=== PATIENT | female | born 1985 | race Caucasian/White ===

== ENCOUNTER 2019-06-07 03:56 | Emergency (ER) | payer OTHER, SELFPAY ==
--- NOTE | ~2019-06-07 | CT_ITS ---
EXAMINATION: CTA chest PE protocol DATE: 06/07/2019 05:30 INDICATION: Right-sided chest pain with inspiration. TECHNIQUE: Computed tomography (CT) pulmonary angiogram of the chest was performed with 100 mL Omnipa que-350 intravenous contrast. Additional 3D reconstructions utilizing coronal maximum intensity proje ction (MIP) were performed. Automated exposure control and iterative reconstruction technique were em ployed. The dose-length product was 219.02 mGy-cm. COMPARISON: None FINDINGS: Excellent contrast opacification of the pulmonary arteries. There is mild streak artifact from dense contrast in the superior vena cava and right atrium. No significant motion artifact. No pulmonary emb olism. A couple small calcified nodules in the bilateral lower lobes consistent with old granulomatou s disease. Lungs are otherwise clear with no pneumonia, pulmonary edema or pleural effusion. Heart si ze is normal. No pericardial effusion. No pathologically enlarged thoracic lymphadenopathy. Bones are unremarkable. IMPRESSION: 1. No pulmonary embolism or other acute cardiopulmonary disease. Reviewed, dictated and finalized at location A. T TAXONOMIST
[2019-06-07 04:18] VITALS: BP 116/83; PULSE 96; RESP 19; TEMP 36.7; O2SAT 100
--- NOTE | 2019-06-07 04:22 | ECG_ITS ---
Measurements Intervals [place] Rate: 81 P: 50 HI: 135 QRS: 55 QRSD: 100 T: 8 QT: 375 QTc: 436 Interpretive Statements SINUS RHYTHM NORMAL ECG Electronically Signed On 06-07-2019 7:04:53 DIRECTOR PHYSICAL by Perry Norwood D.O.
[2019-06-07 04:38] LABS: Basophils Percent Auto 0.3 % (0.2-1.2); Eosinophils Absolute Auto 0.1 K/mm3 (0-0.3); Eosinophils Percent Auto 1.8 % (0-4.4); Hematocrit 32.9 % (37.0-47.0); Hemoglobin 10.9 g/dL (12.0-15.0); Immature Granulocyte Absolute 0.02 K/mm3 (0.00-0.031); Immature Granulocyte Percent A 0.3 % (0-0.5); Lymphocytes Absolute Auto 1.93 K/mm3 (0.9-3.2); Lymphocytes Percent Auto 27.2 % (18.3-44.2); Mean Corpuscular HGB Conc 33.1 g/dl (32-36); Mean Corpuscular Hemoglobin 29.1 pg (26-34); Mean Platelet Volume 9.8 fl (7.4-10.4); Monocytes Absolute Auto 0.5 K/mm3 (0.1-0.6); Monocytes Percent Auto 6.9 % (2.6-8.5); Neutrophils Absolute Auto 4.5 K/mm3 (1.3-6.7); Neutrophils Percent Auto 63.5 % (45.5-73.1); Platelet Count Result 265 k/mm3 (150-375); Red Blood Count 3.74 M/mm3 (4.2-5.4); Red Cell Distribution Width 11.8 % (11.5-14.5); White Blood Count 7.1 K/mm3 (4.5-10.0)
--- NOTE | 2019-06-07 04:38 | ED.CHESTPAIN ---
HPI - Chest Pain General Chief Complaint: Chest Pain Stated Complaint: rt lung pain Time Seen by Provider: 06/07/19 04:16 Source: patient Mode of arrival: ambulatory Limitations: no limitations History of Present Illness HPI narrative: Patient is a 34-year-old female who presents emergency department with complaint of right-sided chest pain. Patient reports onset of symptoms last night. Patient reports symptoms worsened this morning and woke her from sleep. Patient states the pain is worse with breathing. She denies any recent upper respiratory symptoms or shortness of breath. Patient underwent uterine myomectomy and ovarian cystectomy on 05/24/2019. Patient also recently was started on oral contraceptives earlier this month. complaint: chest pain Onset (ago): hour(s) Timing of current episode: constant Onset: during rest Pain location: right chest Severity: moderate Quality: aching Relieving factors: nothing Exacerbating factors: inspiration and movement Context: recent surgery Treatment prior to arrival: none Risk Factors Pulmonary embolism risk factors: recent surgery and oral contracepetive use Review of Systems Review of Systems: All systems reviewed & are unremarkable except as noted in HPI and below ENT: Denies nasal congestion, Denies nasal discharge and Denies sore throat Cardiovascular: Cardiovascular: Reports chest pain Respiratory: Respiratory: Denies cough and Denies dyspnea PMFSH Past Medical History Medical History (Updated 06/07/19 @ 06:10 by Berenice Montemayor MD) Ovarian cyst Surgical History Surgical History (Updated 06/07/19 @ 04:46 by Berenice Montemayor MD) History of myomectomy History of ovarian cystectomy Social History Social History (Updated 06/07/19 @ 04:46 by Berenice Montemayor MD) Smoking status: Never smoker Exam Const: General: cooperative, no acute distress and alert Nutritional Appearance: well nourished Orientation/consciousness: patient oriented x3 Limitations: no limitations HENMT: Mouth: Yes lip normal and Yes moist mucous membranes Resp: Effort & Inspection: normal respiratory effort Auscultation: clear to auscultation bilaterally Cardio: Rate: regular rate Rhythm: regular rhythm GI: GI Palp: Yes Soft to palpation and No Tenderness to palpation present (GI) Auscultation: normal bowel sounds Skin: General skin exam: normal color Neuro: General: patient oriented x3 Cognition (Neuro): normal cognition Speech: normal speech Extrem: General: normal to inspection, full ROM, no clubbing, cyanosis or edema, no pedal edema and no calf tenderness Psych: Mental Status: mental status grossly normal Affect: normal affect Attitude: cooperative Course Course Emergency Course: No acute abnormalities noted on testing. No significant change in symptoms after Toradol. Patient without findings of pulmonary embolism on CT scan. No other cardiopulmonary pathology noted on evaluation. Patient is well in appearance and appropriate for discharge home to follow-up with her primary care physician for further evaluation if needed. Symptoms consistent with pleurisy. Vital Signs Vital signs: Vital Signs Temperature 98.1 F 06/07/19 04:18 Pulse Rate 96 06/07/19 04:18 Respiratory Rate 19 06/07/19 04:18 Blood Pressure 116/83 06/07/19 04:18 Pulse Oximetry 100 06/07/19 04:18 Temperature 98.1 F 06/07/19 04:18 Pulse Rate 96 06/07/19 04:18 Respiratory Rate 19 06/07/19 04:18 Blood Pressure 116/83 06/07/19 04:18 Pulse Oximetry 100 06/07/19 04:18 MDM - Chest Pain Lab Data Attestation: I reviewed the patient's lab results. Result diagrams: 06/07/19 04:29 06/07/19 04:30 Labs: Lab Results 06/07/19 06/07/19 06/07/19 Range/Units 04:29 04:30 04:30 WBC 7.1 (4.5-10.0) K/mm3 RBC 3.74 L (4.2-5.4) M/mm3 Hgb 10.9 L (12.0-15.0) g/dL Hct 32.9 L (37.0-47.0) % MCV 88.0 (80-100) fl
[2019-06-07 04:46] LABS: Prothrombin Time 12.5 Seconds (11.1-14.7)
[2019-06-07 04:47] LABS: Alanine Aminotransferase 36 U/L (4-35); Albumin Level 4.3 g/dL (3.5-5.1); Alkaline Phosphatase 63 U/L (38-126); Aspartate Amino Transferase 22 U/L (14-36); Bilirubin,Total 1.1 mg/dL (0.2-1.3); Blood Urea Nitrogen 16 mg/dL (7-17); Calcium 9.5 mg/dL (8.4-10.2); Carbon Dioxide 23 mmol/L (22-30); Chloride 100 mmol/L (98-107); Estimated Glomerular Filt Rate > 60; Glucose 107 mg/dL (65-105); Partial Thromboplastin Time 26.4 SECONDS (22.3-36.8); Potassium 3.9 mmol/L (3.4-5.0); Sodium 138 mmol/L (137-145)
[2019-06-07 04:59] LABS: Troponin I < 0.012 ng/mL (0.000-0.034)
[2019-06-07 05:50] VITALS: BP 115/85; PULSE 95; RESP 16; O2SAT 100
== END 2019-06-07 06:21 | disposition home or self-care (01) ==
PROVIDERS: Emergency Provider Emergency Medicine; PCP Family Medicine
DX: R07.81 Pleurodynia (principal)
CPT/HCPCS: 36415; 71275; 80053; 81025; 84484; 85025; 85610; 85730; 93005; 99284; Q9967

== ENCOUNTER 2019-10-07 09:06 | Emergency (ER) | payer OTHER, SELFPAY ==
[2019-10-07 09:13] VITALS: BP 110/70; PULSE 67; RESP 16; TEMP 37.1; O2SAT 100
--- NOTE | 2019-10-07 09:34 | ED.FEMALEGU ---
HPI - Female Genitourinary General Chief complaint: Urogenital-Female Stated complaint: Uti Time Seen by Provider: 10/07/19 09:29 Source: patient and RN notes reviewed Mode of arrival: ambulatory Limitations: no limitations History of Present Illness HPI Narrative: Patient presents today complaining of dysuria, frequency, urgency, lower abdominal cramping, nausea, chills since yesterday. Denies hematuria, fever. No recent antibiotic use. She has tried no [id number] interventions prior to arrival. History of endometriosis and uterine fibroid removal. MD elicited complaint: dysuria Related Data Home Medications Medication Instructions Recorded Confirmed letrozole 2.5 mg PO DAILY 10/07/19 10/07/19 Allergies Allergy/AdvReac Type Severity Reaction Status Date / Time ciprofloxacin [From Cipro] Allergy Other Verified 10/07/19 09:29 tramadol AdvReac Anxiety Verified 10/07/19 09:30 Review of Systems Review of Systems: Narrative: CONSTITUTIONAL: Denies body aches, fever, or sweats.+Chills EYES: Denies visual changes, redness, or discharge. ENT: Denies rhinorrhea, congestion, sore throat, or otalgia. CARDIOVASCULAR: Denies chest pain, palpitations, or edema. RESPIRATORY: Denies cough or dyspnea. GASTROINTESTINAL: Denies abdominal pain, vomiting, or diarrhea.+Nausea GENITOURINARY: Denies hematuria.+Dysuria, frequency, urgency, suprapubic cramping SKIN: Denies rash, itching, or wounds. MUSCULOSKELETAL: Denies back pain, joint pain, or myalgia. NEUROLOGIC: Denies headache, numbness, tingling, or weakness. PSYCH: Denies depression or anxiety. [facility] Past Medical History Medical History (Updated 10/07/19 @ 09:38 by Karina Mora, [facility], ) Ovarian cyst Surgical History Surgical History (Updated 06/07/19 @ 04:46 by Berenice Montemayor MD) History of myomectomy History of ovarian cystectomy Social History Social History (Updated 06/07/19 @ 04:46 by Berenice Montemayor MD) Smoking status: Never smoker Comments At time of signature, I have reviewed and agree with nursing past medical, surgical, social and family history unless otherwise noted. Please see nursing chart for further information. There is no relevant family history pertinent to the presenting complaint Exam Narrative: Exam Narrative: GENERAL: Well-appearing, well-nourished, and in no acute distress. HEAD: Normocephalic, atraumatic. EYES: EOMI. No redness or drainage. Conjunctivae normal. ENT: Mucous membranes pink and moist. NECK: Normal AROM. CHEST: No respiratory distress. Clear to auscultation. HEART: Regular rate and rhythm. No murmur appreciated. Normal peripheral pulses. ABDOMEN: Soft, nondistended, normal active bowel sounds.-CVAT. Mild suprapubic tenderness. No rebound or guarding. MUSCULOSKELETAL: No bony tenderness. EXTREMITIES: Normal range of motion. No edema. SKIN: Warm, dry, no rash. Capillary refill normal. Normal skin turgor. NEURO: No focal deficits. Alert and oriented x3. Gait steady. PSYCH: Normal affect. No signs of depression or anxiety. Course Vital Signs Vital signs: Vital Signs Temperature 98.7 F 10/07/19 09:13 Pulse Rate 67 10/07/19 09:13 Respiratory Rate 16 10/07/19 09:13 Blood Pressure 110/70 10/07/19 09:13 Pulse Oximetry 100 10/07/19 09:13 Temperature 98.7 F 10/07/19 09:13 Pulse Rate 67 10/07/19 09:13 Respiratory Rate 16 10/07/19 09:13 Blood Pressure 110/70 10/07/19 09:13 Pulse Oximetry 100 10/07/19 09:13 Reviewed MDM - Female Genitourinary Differential Diagnosis Differential diagnosis: Likely urinary tract infection, vaginitis and cystitis Lab Data Attestation: I reviewed the patient's lab results. Labs: Urine Glucose Negative Reference Range: Negative Urine Bilirubin Negative Reference Range: Negative Urine Ketone Negative Reference Range: Negative Urine Specific [place]
== END 2019-10-07 09:40 | disposition home or self-care (01) ==
PROVIDERS: Emergency Provider Nurse Practitioner; PCP Family Medicine
DX: N30.01 Acute cystitis with hematuria (principal)
CPT/HCPCS: 81003; 87086; 87088; 99213; G0463

== ENCOUNTER 2024-05-26 09:47 | Emergency (ER) | payer OTHER, SELFPAY ==
[2024-05-26 10:01] VITALS: BP 120/79; PULSE 76; RESP 16; TEMP 36.6; O2SAT 100
--- NOTE | 2024-05-26 10:02 | ED.URI ---
HPI - URI/Sore Throat General Chief Complaint: Upper Respiratory Infection Stated Complaint: Headache/Cough Time Seen by Provider: 05/26/24 10:05 Source: patient Mode of arrival: ambulatory Limitations: no limitations History of Present Illness HPI Narrative: Nancy is a 39-year-old female patient presenting to the clinic today with complaints of headache, cough, nasal congestion, and sinus pressure times 5 days. She reports she has felt feverish. Is coughing so hard that she is short of breath times. Denies any chest pain or shortness of breath at this time. Used her 's albuterol nebulized last night and that helped MD elicited complaint: fever, cough, nasal congestion and other (Headache) Related Data Home Medications ?Medication ?Instructions ?Recorded ?Confirmed ?Last Taken ?Type letrozole 2.5 mg tablet 2.5 mg PO DAILY 10/07/19 10/07/19 Unknown History Allergies Allergy/AdvReac Type Severity Reaction Status Date / Time ciprofloxacin (From Cipro) Allergy Other Verified 10/07/19 09:29 tramadol AdvReac Anxiety Verified 10/07/19 09:30 Review of Systems Review of Systems: Pertinent positives per HPI. Patient denies any rash, visual changes, dizziness, chest pain, palpitations, nausea, vomiting, diarrhea, constipation, abdominal pain, or any urinary issues. [facility] Past Medical History Medical History (Updated 05/26/24 @ 10:21 by Montez Frost APRN) Ovarian cyst Surgical History Surgical History (Updated 06/07/19 @ 04:46 by Berenice Montemayor MD) History of ovarian cystectomy History of myomectomy Social History Social History (Updated 06/07/19 @ 04:46 by Berenice Montemayor MD) Smoking status: Never smoker Comments At the time of my signature, I reviewed and agree with the nursing past medical, surgical, social, and family history. There is no relevant family history pertinent to the patient complaint. Exam Narrative: General: Well-developed, well nourished, in no apparent distress Head: Normocephalic, atraumatic Eyes: Pupils equally round and reactive to light bilaterally, EOM intact, sclera and conjunctive clear, no discharge, lids normal Ears: TMs intact and clear, ear canals clear, no drainage, grossly hearing normal. Nose: Nares patent, clear discharge, no inflammation, no sinus tenderness. Mouth: Oral pharynx red without lesions or masses, good dentition, MMM. PND Neck: Supple, trachea midline, no enlargement of anterior or posterior cervical nodes, no thyroid masses or goiter palpable. Cardio: Regular rate and rhythm, s1 and s2 normal, no murmur appreciated. Resp: Clear to auscultation bilaterally, no rhonchi, rales, wheezing or rubs Course Course Emergency Course: Portions of this record may have been created with voice recognition software. Level of Care: Express Care Visit Vital Signs Vital signs: Vital Signs Temperature 36.6 C 05/26/24 10:01 Pulse Rate 76 05/26/24 10:01 Respiratory Rate 16 05/26/24 10:01 Blood Pressure 120/79 05/26/24 10:01 Pulse Oximetry 100 05/26/24 10:01 Temperature 36.6 C 05/26/24 10:01 Pulse Rate 76 05/26/24 10:01 Respiratory Rate 16 05/26/24 10:01 Blood Pressure 120/79 05/26/24 10:01 Pulse Oximetry 100 05/26/24 10:01 Vital signs reviewed MDM - URI/Sore Throat MDM Narrative Medical decision making narrative: At the time of visit patient is resting comfortably on the exam table. Patient appears to be nontoxic. Labs: COVID and influenza testing was performed. COVID test was positive. Influenza testing was negative Plan: Patient has COVID. Will send in prescription for albuterol inhaler. Supportive measures were discussed with the patient and they voiced understanding discharge instructions and agrees to treatment plan. Return precautions reviewed Differential Diagnosis Differential diagnosis: Likely upper respiratory infection, otitis media, sinusitis, viral infection, bronchitis, influenza, pharyngitis and other (COVID) Discharge Plan Discharge Clinical Impression: COVID-19 Patient Disposition: Home, Self-Care Condition: Stable Instructions: Antibiotic Form, How to Recover from COVID-19 at Home (ED) Additional Instructions: Take prescription medications only as prescribed-albuterol inhaler May continue Tessalon Perles Cool-mist humidifier at the bedside Increase fluids and stay well hydrated Tylenol/motrin for pain/fever Flonase and OTC antihistamines as directed Vicks vapor rub to open sinuses Sinus rinses for congestion Cepacol spray, cough drops, throat lozenges, warm tea with honey/lemon, gargle salt water to soothe throat BRAT diet for diarrhea Clear liquids x 24 hours then advance as tolerated for nausea/vomiting Go to the ED if you develop a worsening in your condition- high fever not controlled by Tylenol or Motrin, dehydration, weakness, lethargy, shortness of breath, or chest pain. Follow up with your PCP in 3-5 days if symptoms persist. Patient Language: Eritrean Prescriptions: New albuterol sulfate 90 mcg/actuation HFA aerosol inhaler 2 puff inhalation Q4-6H PRN (Reason: shortness of breath or wheezing) 30 Days Qty: 8.5 0RF No Action letrozole 2.5 mg Tablet 2.5 mg PO DAILY nitrofurantoin monohyd/m-cryst [Macrobid] 100 mg capsule 100 mg PO Q12H 7 Days Qty: 14 0RF Rx Instructions: must administer with a meal/food Follow-up/Referrals: PHYSICIAN,DIGITAL ARCHIVIST [Primary Care Provider] - Stand Alone Forms: Work/School Release IP Time of Disposition: 10:21 Quality NIHSS Nursing Documentation ED NIHSS nursing documentation: reviewed/agree
[2024-05-26 10:06] LABS: EDCOVIDSCREEN Positive (Negative)
[2024-05-26 10:12] LABS: EDINFLUASCREEN Negative (Negative); EDINFLUBSCREEN Negative (Negative)
== END 2024-05-26 10:24 | disposition home or self-care (01) ==
PROVIDERS: Emergency Provider Nurse Practitioner Family
DX: U07.1 COVID-19 (principal)
CPT/HCPCS: 87426; 87804; 99213; G0463

== ENCOUNTER 2024-06-12 12:50 | Emergency (ER) | payer OTHER, SELFPAY ==
--- NOTE | ~2024-06-12 | XR_ITS ---
EXAMINATION: XR chest 2V 06/12/2024 13:17 INDICATION: Cough and chills PROCEDURE: 2 view chest COMPARISON: No prior studies for comparison. FINDINGS: The lungs are clear. The cardiomediastinal silhouette is within normal limits. There are no pleural effusions. There is no pneumothorax suspected. IMPRESSION: 1: NO ACUTE CARDIOPULMONARY DISEASE. Reviewed, dictated and finalized at location B. ET ENGINEER
--- NOTE | 2024-06-12 12:54 | ED.URI ---
HPI - URI/Sore Throat General Chief Complaint: Upper Respiratory Infection Stated Complaint: Sore Throat/Back Pain/Ear Pain Source: patient and RN notes reviewed Mode of arrival: ambulatory Limitations: no limitations History of Present Illness HPI Narrative: Patient is a 39-year-old female who presents to the [facility] with multiple complaints. Patient states that she was diagnosed with COVID on 05/26/2024. She states that her symptoms lasted an additional week. She started to feel better. Then, she developed a worsening cough, shortness of breath with exertion, body aches, and chills over the weekend. She states that she woke up Tuesday with a sore throat. She is unsure of known fevers. Her respirations are currently unlabored. She does not appear in any acute distress. Related Data Home Medications ?Medication ?Instructions ?Recorded ?Confirmed ?Last Taken ?Type letrozole 2.5 mg tablet 2.5 mg PO DAILY 10/07/19 10/07/19 Unknown History Allergies Allergy/AdvReac Type Severity Reaction Status Date / Time ciprofloxacin (From Cipro) Allergy Other Verified 06/12/24 13:03 tramadol AdvReac Anxiety Verified 06/12/24 13:03 Review of Systems Review of Systems: CONSTITUTIONAL: Denies fever, but reports sweats and chills. EYES: Denies visual changes, redness, or discharge. ENT: Denies otalgia. Reports sore throat. CARDIOVASCULAR: Denies chest pain, palpitations, or edema. RESPIRATORY: Reports cough and dyspnea. GASTROINTESTINAL: Denies abdominal pain, nausea, vomiting, or diarrhea. GENITOURINARY: Denies dysuria or hematuria. SKIN: Denies rash or itching. MUSCULOSKELETAL: Denies back pain, joint pain, but reports myalgia. NEUROLOGIC: Denies headache, numbness, or weakness. Pertinent positives per HPI. [facility] Past Medical History Medical History Ovarian cyst Surgical History Surgical History History of ovarian cystectomy History of myomectomy Social History Social History Smoking status: Never smoker Comments At the time of my signature, I reviewed and agree with the nursing past medical, surgical, social, and family history. There is no relevant family history pertinent to the patient complaint. Exam Narrative: GENERAL: This is a well-nourished, well-developed patient, in no apparent distress. HEAD: normocephalic, atraumatic. EYES: Sclera clear/white. Vision is grossly intact. EARS: External ears normal, auditory canals clear and without drainage, TMs normal without perforation. Hearing grossly intact. NOSE: External nose normal with no obvious nasal discharge, nares without redness, no rhinorrhea. THROAT: Mucous membranes moist, oropharyngeal erythema without exudate or ulceration. NECK: Neck supple, non-tender without lymphadenopathy, masses or thyromegaly. CARDIOVASCULAR: Regular rate and rhythm without murmurs, gallops, or rubs. RESPIRATORY: Clear to auscultation. Breath sounds equal bilaterally. No wheezes, rales, or rhonchi. GASTROINTESTINAL: Abdomen soft, non-tender, nondistended. Bowel sounds are active. No hepato-splenomegaly, or palpable masses. No guarding. SKIN: warm, intact with no suspicious lesions or rash, good texture and turgor. NEURO: awake, alert, and oriented to person, place and time. There were no obvious focal neurologic abnormalities. Course Course Level of Care: Express Care Visit Vital Signs Vital signs: Vital Signs Temperature 98.6 F 06/12/24 13:10 Pulse Rate 108 H 06/12/24 13:10 Respiratory Rate 16 06/12/24 13:10 Blood Pressure 127/89 06/12/24 13:10 Pulse Oximetry 100 06/12/24 13:10 Temperature 98.6 F 06/12/24 13:10 Pulse Rate 108 H 06/12/24 13:10 Respiratory Rate 16 06/12/24 13:10 Blood Pressure 127/89 06/12/24 13:10 Pulse Oximetry 100 06/12/24 13:10 Reviewed MDM - URI/Sore Throat MDM Narrative Medical decision making narrative: Viral illness may last between 7-21 days; antibiotics do not cure viral illness and are NOT recommended at this time. Also, recommend symptomatic treatment includes: rest, fluids, and increase humidity of the air at home. Recommend Acetaminophen as directed on the bottle to reduce fever, pain, headache. Please schedule a follow-up visit with your personal physician for further evaluation and treatment within 3-5days. If your symptoms persist, change or worsen significantly before you can contact your personal physician then please, without delay, go to the emergency department for further evaluation. Take antibiotics as directed. May given ibuprofen and/or Tylenol as needed for pain and/or fever. Follow up with primary care provider in 7-10 days to have ear rechecked. Differential Diagnosis Differential diagnosis: Likely upper respiratory infection, otitis media, viral infection, influenza and other (covid, strep) Lab Data Attestation: I reviewed the patient's lab results. Labs: Lab Results 06/12/24 Range/Units 13:03 POC Influenza A Ag Negative (Negative) POC Influenza B Ag Negative (Negative) POC SARS CoV-2 Ag Negative (Negative) POC Grp A Strep Screen Negative (Negative) Imaging Data Attestation: I personally reviewed and interpreted this imaging study as follows: Radiologist's impression: Close Chest X-Ray (Signed) Sinan Crisostomo - 06/12/24 Launch?[facility] [place] [id number] XRay Report Signed Patient: Nancy Velarde : 1985 MR#: [id number] Age: 39 Acct:[id number] Loc: [facility] ADM Date: 06/12/24Attending Dr: Ordering Physician: Lu Muse APRN Date of Service: 06/12/24 Procedure(s): XR chest 2V Accession Number(s): [id number] cc: Lu Muse APRN; TAXONOMY TEACHER PHYSICIAN~ EXAMINATION: XR chest 2V 06/12/2024 13:17 INDICATION: Cough and chills PROCEDURE: 2 view chest COMPARISON: No prior studies for comparison. FINDINGS: The lungs are clear. The cardiomediastinal silhouette is within normal limits. There are no pleural effusions. There is no pneumothorax suspected. IMPRESSION: 1: NO ACUTE CARDIOPULMONARY DISEASE. Reviewed, dictated and finalized at location B. INE WOOD SANDER Please be advised this is a medical document. It is intended for mqbc-[id number] communication. It is written in medical language and may contain unfamiliar abbreviations or verbiage. Medical documents are intended to carry relevant information, facts as evident, and the clinical opinion of the practitioner at the time of the encounter. This report may have been done utilizing a voice recognition system. Attempts have been made to correct errors. However, there may be uncorrected grammatical, spelling, and recognition errors present. The file time of this note does not necessarily represent the time of service. Dictated By: Sinan Crisostomo MD 06/12/24 1320 Signed By: <Electronically signed by Sinan Crisostomo MD in OV> 06/12/24 1324 Critical Care Time Critical Care Time Critical Care Time: No Discharge Plan Discharge Clinical Impression: Bilateral acute otitis media, Viral illness Patient Disposition: Home, Self-Care Condition: Stable Instructions: Ear Infection (ED), Viral Syndrome (ED) Additional Instructions: Viral illness may last between 7-21 days; antibiotics do not cure viral illness and are NOT recommended at this time. Also, recommend symptomatic treatment includes: rest, fluids, and increase humidity of the air at home. Recommend Acetaminophen as directed on the bottle to reduce fever, pain, headache. Please schedule a follow-up visit with your personal physician for further evaluation and treatment within 3-5days. If your symptoms persist, change or worsen significantly before you can contact your personal physician then please, without delay, go to the emergency department for further evaluation. Take antibiotics as directed. May given ibuprofen and/or Tylenol as needed for pain and/or fever. Follow up with primary care provider in 7-10 days to have ear rechecked. Patient Language: Serbian Prescriptions: New amoxicillin-pot clavulanate 875-125 mg tablet 1 tablet PO Q12H 10 Days Qty: 20 0RF No Action letrozole 2.5 mg Tablet 2.5 mg PO DAILY albuterol sulfate 90 mcg/actuation HFA aerosol inhaler 2 puff inhalation Q4-6H PRN (Reason: shortness of breath or wheezing) 30 Days Qty: 8.5 0RF Follow-up/Referrals: PHYSICIAN,TAXONOMY TEACHER [Primary Care Provider] - Time of Disposition: 13:29
[2024-06-12 13:10] VITALS: BP 127/89; PULSE 108; RESP 16; TEMP 37; O2SAT 100
[2024-06-12 13:24] LABS: EDCOVIDSCREEN Negative (Negative); EDINFLUASCREEN Negative (Negative); EDINFLUBSCREEN Negative (Negative); EDSTREPNEGPOS1 Negative (Negative)
== END 2024-06-12 13:34 | disposition home or self-care (01) ==
PROVIDERS: Emergency Provider Nurse Practitioner
DX: H66.92 Otitis media, unspecified, left ear (principal); B34.9 Viral infection, unspecified; Z20.822 Contact with and (suspected) exposure to COVID-19
CPT/HCPCS: 71046; 87081; 87426; 87804; 87880; 99213; G0463

== ENCOUNTER 2024-06-15 12:45 | Emergency (ER) | payer OTHER, SELFPAY ==
[2024-06-15 12:53] VITALS: BP 122/83; PULSE 96; RESP 16; TEMP 36.7; O2SAT 100
[2024-06-15 13:38] LABS: EDCOVIDSCREEN Negative (Negative); EDINFLUASCREEN Negative (Negative); EDINFLUBSCREEN Negative (Negative); EDMONONEGPOS Negative (Negative); EDSTREPNEGPOS1 Negative (Negative)
--- NOTE | 2024-06-15 13:47 | ED.GENADULT ---
HPI - General Adult General Chief complaint: Upper Respiratory Infection Stated complaint: Sore Throat Source: patient Mode of arrival: ambulatory Limitations: no limitations History of Present Illness HPI narrative: Patient presents for evaluation of sick symptoms. She indicates she had COVID at the start of this month. Her primary symptom at that point was headache. Her symptoms improved. She indicates she was evaluated here Tuesday with complaints of sore throat and fever. She states she had negative testing at that time was told she had an ear infection. She was given Augmentin. She has been taking medication as directed. Her ear symptoms are improving. She continues to have a sore throat. Her fever broke yesterday. She reports left cervical lymphadenopathy with a tingling sensation on left side of her face. She is not aware of specific sick contacts. She does not smoke. She has also taken theraflu for her symptoms. Related Data Allergies Allergy/AdvReac Type Severity Reaction Status Date / Time ciprofloxacin (From Cipro) Allergy Other Verified 06/15/24 12:51 tramadol AdvReac Anxiety Verified 06/15/24 12:51 Review of Systems Review of Systems: CONSTITUTIONAL: Reports recent fever, now resolved. Denies diaphoresis EYES: Denies visual changes, redness, or discharge. ENT: reports recent ear pain, now resolved. Reports sore throat. Denies sinus congestion. CARDIOVASCULAR: Denies chest pain, palpitations, or edema. RESPIRATORY: Reports occasional cough. Denies shortness of breath GASTROINTESTINAL: Denies abdominal pain, nausea, vomiting, or diarrhea. GENITOURINARY: Denies dysuria or hematuria. SKIN: Denies rash or itching. MUSCULOSKELETAL: Denies back pain, joint pain, or myalgia. NEUROLOGIC: reports tingling in the left side of the face.Denies headache,dizziness, or weakness. PSYCHIATRIC: Denies anxiety or depression. [facility] Past Medical History Medical History Ovarian cyst Surgical History Surgical History History of ovarian cystectomy History of myomectomy Family History Family History Mother Family history non-contributory Social History Social History Smoking status: Never smoker Substance use: never Living arrangements: with family Gender identity (if verbalized by the patient): Female Spiritual care concerns: No Exam Narrative: GENERAL: Well-appearing, well-nourished, and in no acute distress. HEAD: Normocephalic, atraumatic. EYES: PERRLA and EOMI. ENT: Nares clear, no rhinorrhea or epistaxis. Mucous membranes moist. Oropharynx without tonsillar hypertrophy exudate or other lesions. Bilateral TMs pearly deal nonbulging NECK: Supple. No adenopathy or masses. No carotid bruits or JVD CHEST: Clear to auscultation. No respiratory distress. No wheezes rales or rhonchi HEART: Regular rate and rhythm. No murmur heard. Normal peripheral pulses. ABDOMEN: Soft, nontender, nondistended, normal active bowel sounds. EXTREMITIES: Normal range of motion. No edema. SKIN: Warm, dry, no rash. NEURO: No focal deficits. Alert and oriented x3. PSYCH: Normal mood and affect. Course Course Emergency Course: this is a 39-year-old female who presented for evaluation of sick symptoms. We repeated her COVID, flu and strep test all of which were negative. We also checked a mono. That also resulted as negative. I did speak with patient let her know other symptoms were likely viral in nature. We did agree to change her antibiotic in the event that she actually has a bacterial infection that is not responding to augmentin. She will continue her Augmentin for now and will change her antibiotic if she is not feeling better in a few days. She should follow up with primary provider go to the ER for worsening symptoms. Patient in agreement with plan of care. Level of Care: Express Care Visit Vital Signs Vital signs: Vital Signs Temperature 36.7 C 06/15/24 12:53 Pulse Rate 96 06/15/24 12:53 Respiratory Rate 16 06/15/24 12:53 Blood Pressure 122/83 06/15/24 12:53 Pulse Oximetry 100 06/15/24 12:53 Temperature 36.7 C 06/15/24 12:53 Pulse Rate 96 06/15/24 12:53 Respiratory Rate 16 06/15/24 12:53 Blood Pressure 122/83 06/15/24 12:53 Pulse Oximetry 100 06/15/24 12:53 Medical Decision Making Vital Signs Vital Signs: Vital Signs Temperature 36.7 C 06/15/24 12:53 Pulse Rate 96 06/15/24 12:53 Respiratory Rate 16 06/15/24 12:53 Blood Pressure 122/83 06/15/24 12:53 Pulse Oximetry 100 06/15/24 12:53 Temperature 36.7 C 06/15/24 12:53 Pulse Rate 96 06/15/24 12:53 Respiratory Rate 16 06/15/24 12:53 Blood Pressure 122/83 06/15/24 12:53 Pulse Oximetry 100 06/15/24 12:53 Lab Data Labs: Lab Results 06/15/24 Range/Units 13:36 POC Monoscreen Negative (Negative) POC Influenza A Ag Negative (Negative) POC Influenza B Ag Negative (Negative) POC SARS CoV-2 Ag Negative (Negative) POC Grp A Strep Screen Negative (Negative) Discharge Plan Discharge Clinical Impression: Pharyngitis Patient Disposition: Home, Self-Care Condition: Stable Instructions: Antibiotic Form, Pharyngitis (ED) Patient Language: Moldovan Prescriptions: New cephalexin 500 mg capsule 500 mg PO Q12H Qty: 20 0RF No Action amoxicillin-pot clavulanate 875-125 mg tablet 1 tablet PO Q12H 10 Days Qty: 20 0RF albuterol sulfate 90 mcg/actuation HFA aerosol inhaler 2 puff inhalation Q4-6H PRN (Reason: shortness of breath or wheezing) 30 Days Qty: 8.5 0RF Follow-up/Referrals: Judith Lee DO [Physician] - Stand Alone Forms: Work/School Release IP Time of Disposition: 13:45
== END 2024-06-15 13:50 | disposition home or self-care (01) ==
PROVIDERS: Emergency Provider Nurse Practitioner
DX: J02.9 Acute pharyngitis, unspecified (principal); Z20.822 Contact with and (suspected) exposure to COVID-19
CPT/HCPCS: 36416; 86308; 87426; 87804; 87880; 99213; G0463

== ENCOUNTER 2024-08-15 13:23 | Outpatient (CLI) | payer OTHER, SELFPAY ==
[2024-08-15 13:42] LABS: Basophils Absolute Auto 0.02 K/mm3 (0.00-0.10); Basophils Percent Auto 0.2 % (0.0-1.0); Eosinophils Absolute Auto 0.16 K/mm3 (0.02-0.50); Eosinophils Percent Auto 1.9 % (1.0-6.0); Hematocrit 38.3 % (35.0-49.0); Hemoglobin 12.6 g/dL (12.0-15.0); Immature Granulocyte Absolute 0.03 K/mm3 (0.00-0.00); Immature Granulocyte Percent A 0.4 % (0.0-0.0); Lymphocytes Absolute Auto 2.53 K/mm3 (1.10-4.50); Lymphocytes Percent Auto 30.7 % (18.0-42.0); Mean Corpuscular HGB Conc 32.9 g/dL (32-36); Mean Corpuscular Hemoglobin 29.1 pg (27.0-31.0); Mean Corpuscular Volume 88.5 fL (78.0-102.0); Mean Platelet Volume 9.4 fl (9.2-11.8); Monocytes Absolute Auto 0.65 K/mm3 (0.10-0.90); Monocytes Percent Auto 7.9 % (2.0-11.0); Neutrophils Absolute Auto 4.84 K/mm3 (1.70-7.20); Neutrophils Percent Auto 58.9 % (50.0-70.0); Platelet Count Result 279 K/mm3 (150-420); Red Blood Count 4.33 M/mm3 (4.20-5.40); Red Cell Distribution Width 12.3 % (11.6-14.4); White Blood Count 8.2 K/mm3 (4.8-10.8)
[2024-08-15 13:55] LABS: Hemoglobin A1C 5.3 % (<5.7)
[2024-08-15 14:45] LABS: Alanine Aminotransferase 20 U/L (14-59); Albumin Level 4.1 g/dL (3.4-5.0); Alkaline Phosphatase 111 U/L (46-116); Anion Gap 9 mmol/L (4-12); Aspartate Amino Transferase 18 U/L (15-37); Blood Urea Nitrogen 11 mg/dL (7-18); Calcium 9.7 mg/dL (8.5-10.1); Carbon Dioxide 27 mmol/L (21-32); Chloride 104 mmol/L (98-108); Cholesterol 232 mg/dL (0-200); Estimated Glomerular Filt Rate > 60; Glucose 88 mg/dL (70-99); HDL Direct 64 mg/dL (40-60); LDL Cholesterol Calculated 123 mg/dL (<130); Osmolality Calculated 288 mOsm/kg (285-295); Potassium 4.3 mmol/L (3.5-5.1); Sodium 140 mmol/L (136-145); Total Protein 7.6 g/dL (6.4-8.2); Triglycerides 223 mg/dL (0-150)
--- OUTSIDE RECORDS SUMMARY | 2024-08-15 15:06 | XMS_ITS | Encounter Summary ---
Author Organization [facility] Address [address] [place] [address] Care Team Providers Care Wooling Machine Operator Name Role Phone Ronny Piedra MD Primary Care Provider [phone] Zion Mora MD Primary Care Provider [phone] Encounter Details Date Type Department Care Team (Late st Contact Info) Description 07/09/2017 Abstract [facility] CONVERSION [address] [place] [address] , Generic MD Pernell Social History Tobacco Use Types Packs/Day Years Used Date Smoking Tobacco: Never Assessed Comments Unknown Sex and Gender Information Value Date Recorded Sex Assigned at Not on file Legal Sex Female 9:55 PM MASTER YACHT Gender Identity Not on file Sexual Orientation Not on file documented as of this encounter Plan of Treatment Not on file documented as of this encounter Visit Diagnoses Not on filedocumented in this encounter Additional Health Concerns Infection Onset Date Last Indicated Resolved Time COVID-19 Rule Out 05/01/2021 05/01/2021 05/01/2021 11:15 AM MASTER YACHT COVID-19 Confirmed 05/01/2021 05/01/2021 12:32 AM MASTER YACHT documented as of this encounter Care Teams Wooling Machine Operator Relationship Specialty Start Date End Date Ronny [place] [address] [address] PCP - General FAMILY PRACTICE 11/21/18 04/30/21 [place] [address] PCP - General FAMILY PRACTICE 05/01/21 documented as of this encounter
--- OUTSIDE RECORDS SUMMARY | 2024-08-15 15:06 | XMS_ITS | Clinical Summary ---
Author Organization [facility] Address [facility] [place] [address] Care Team Providers Care Manager Cosmetics Name Role Phone Zion Mora MD Primary Care Provider [phone] Allergies Active Allergy Reactions Criticality Noted Date Comments Fluocinolone Headache 05/15/2019 Tramadol Chest pressure 05/15/2019 Medications vitamin 28-0.6-0.4-340 MG capsule Take 1 capsule by mouth daily. Active vitamin D3, cholecalciferol , 1000 UNIT Tab tablet Take 1 tablet by mouth daily. Active hydrocodone-nehemiah taminophen (NORCO) 5-325 MG tabletIndicatio ns:Acute Pain < 7 Day Supply Take 1 tablet by mouth every 6 (six) hours as needed for Pain. Indications: Acute Pain < 7 Day Supply 20 tablet 05/24/2019 Active Active Problems Problem Noted Date Diagnosed Date Intramural and subserous leiomyoma of uterus Immunizations Immunization Administration Dates Next Due MODERNA COVID-19 (12+) MRNA, LNP-S, PF, 100 MCG/ 0.5 ML DOSE 06/19/2020,05/21/2020 Family History Medical History Relation Comments Lung Disease Father Arthritis Mother Heart Disease Mother Hyperlipidemia Mother Hypertension Mother Relation Status Comments Father Alive Mother Alive Social History Tobacco Use Types Packs/Day Years Used Date Smoking Tobacco: Never Smokeless Tobacco: Never Comments Unknown Sex and Gender Information Value Date Recorded Sex Assigned at Not on file Legal Sex Female 9:55 PM AGRICULTURAL EXTENSION AGENT Gender Identity Not on file Sexual Orientation Not on file Last Filed Vital Signs Vital Sign Reading Time Taken Comments Blood Pressure 97/50 05/25/2019 8:14 AM AGRICULTURAL EXTENSION AGENT Pulse 73 05/25/2019 8:14 AM AGRICULTURAL EXTENSION AGENT Temperature 36.5 C (97.7 F) 05/25/2019 8:14 AM AGRICULTURAL EXTENSION AGENT Respiratory Rate 18 05/25/2019 8:17 AM AGRICULTURAL EXTENSION AGENT Oxygen Saturation 100% 05/25/2019 6:48 AM AGRICULTURAL EXTENSION AGENT Inhaled Oxygen Concentration - - Weight 74.4 kg (164 lb) 05/15/2019 12:33 PM AGRICULTURAL EXTENSION AGENT Height 175.3 cm (5' 9 ) 05/15/2019 12:33 PM AGRICULTURAL EXTENSION AGENT Body Mass Index 24.22 05/15/2019 12:33 PM AGRICULTURAL EXTENSION AGENT Plan of Treatment Health Maintenance Due Date Last Done Comments Cervical Cancer Screening Pap Smear (Age 30 to 64) Every 3 Years 1985 Annual Physical 01/24/1988 DTaP, Tdap and Td Vaccines (1 - Tdap) 01/24/2004 11/21/1990, 12/04/1986, 1985, Additional history exists Hepatitis B Vaccines (1 of 3 - 19+ 3-dose series) 01/24/2004 Cervical Cancer Screening Pap with HPV Testing (Age 30 to 64) Every 5 Years 2015 Cervical Cancer Screening with HPV 2015 COVID-19 Vaccine ( season) 2023 06/19/2020, 05/21/2020 Hepatitis C Completed 02/05/2019 HPV Vaccines Aged Out No longer eligi ble based on patient's age to complete this topic Meningococcal B Vaccine Aged Out No l onger eligible based on patient's age to complete this topic Meningococcal Vaccine Aged Out No emi jerrell eligible based on patient's age to complete this topic Pneumococcal Vaccine: Pediatrics (0 to 5 Years) and At-Risk Patients (6 to 49 Years) Aged Out No longer eligible based on patient's age to complete this topic RSV Immunizations Under 20 Months Aged Out No longer eligible based on patient's age to complete this topic Procedures Procedure Name Priority Date/Time Associated Diagnosis Comments HEPATITIS C ANTIBODY Routine 02/05/2019 10:39 AM CDT from Last 3 Months or Most Recently Relevant to Health Maintenance Results * HEPATITIS C ANTIBODY (02/05/2019 10:39 AM CDT) HEPATITIS C AB NON-REACTI VE NON-REACT NAGA 02/06/2019 9:28 PM CDT [facility] Comment: ANTIBODIES TO HCV NOT DETECTED. DOES NOT EXCLUDE THE POSSIBILITY OF EXPOSURE TO HCV. 02/05/2019 10:3 9 AM CDT us Major Taveras MD LABORATORY Final R esult [facility] [address] [place] [address], [id number] from Last 3 Months or Most Recently Relevant to Health Maintenance Insurance [facility] Advance Directives * Full Code (Latest Code Status on File) Date Activated Date Inactivated Comments 05/24/2019 12:38 PM 05/25/2019 4:05 PM Care Teams Manager Cosmetics Relationship Specialty Start Date End Date Zion Mora MD [address] [place] [address] PCP - General FAMILY PRACTICE 05/01/21
--- OUTSIDE RECORDS SUMMARY | 2024-08-15 15:06 | XMS_ITS | Clinical Summary ---
Author Organization [facility] Address [address] [place] [address] Care Team Providers Care Motion Picture Photographer Name Role Phone Miscellaneous, Not In File Primary Care Provider Unavailable Allergies Active Allergy Reactions Criticality Noted Date Comments Fluocinolone Headache Low 05/15/2019 Other Other (See comments) Low 06/18/2021 Pt reports unknown anbx that causes extreme cranial pressure . Tramadol Anxiety,Palpitations Low 06/18/2021 Medications diphenoxylate-atro pine (LOMOTIL) 2.5-0.025 mg per tabletIndications: diarrhea Take 1 tablet by mouth 4 (four) times a day as needed for diarrhea 10 tablet 06/19/19 Active Additional Information Patient not taking.Reported on 09/05/2021 ondansetron ODT (ZOFRAN-ODT) 4 mg disintegrating tablet Dissolve 1 tablet for mild to moderate nausea or vomiting or 2 tablets for severe nausea or vomiting oral twice a day as needed. 10 tablet 06/19/19 Active Additional Information Patient not taking.Reported on 09/05/2021 Jane 1.5-30 mg-mcg tablet per tablet 08/11/19 Active mv,Ca,min/iron/FA/ guarana/caff (ONE-A-DAY WOMEN'S ACTIVE ORAL) Take by mouth Act aruna Active Problems No known active problems Surgical History Surgery Date Site/Laterality Comments INFERIOR OBLIQUE MYECTOMY Medical History Medical History Date Comments Endometritis Family History Medical History Relation Name Comments No Known Problems Father Heart attack Mother Hypertension Mother Relation Name Status Comments Father Mother Alive Social History Tobacco Use Types Packs/Day Years Used Date Smoking Tobacco: Never Smokeless Tobacco: Never Comments Unknown Sex and Gender Information Value Date Recorded Sex Assigned at Not on file Legal Sex Female 8:26 PM STATE MANAGER Gender Identity Not on file Sexual Orientation Not on file Obstetrics History Last Filed Vital Signs Vital Sign Reading Time Taken Comments Blood Pressure 106/80 11/26/2021 2:38 PM CDT Pulse 70 11/26/2021 2:38 PM CDT Temperature 36.8 C (98.3 F) 11/26/2021 2:38 PM CDT Respiratory Rate 16 11/26/2021 2:38 PM CDT Oxygen Saturation 99% 11/26/2021 2:38 PM CDT Inhaled Oxygen Concentration - - Weight 80.3 kg (177 lb) 11/26/2021 2:38 PM CDT Height 172.7 cm (5' 8 ) 11/26/2021 2:38 PM CDT Body Mass Index 26.91 11/26/2021 2:38 PM CDT Plan of Treatment Health Maintenance Due Date Last Done Comments Cervical Cancer Screening 1985 Depression Screening 1985 Hepatitis C Screening 1985 Varicella Vaccines (1 of 2 - 13+ 2-dose series) 1998 Regular Well Visit/Exam 18-64 2003 DTaP/Tdap/Td Vaccine (7 - Td or Tdap) 09/02/2018 09/02/2008, 11/17/1999, 11/21/1990, Additional history exists Covid-19 Vaccine ( season) 2023 06/19/2020, 05/21/2020 Influenza Vaccine (#1) 2023 2018 Hepatitis B Screening Completed 08/24/2010 , 09/26/2009, 09/02/2008 HPV Vaccines Aged Out No longer eligi ble based on patient's age to complete this topic Pneumococcal vaccine <65 Aged Out No longer eligible based on patient's age to complete this topic Insurance [facility] CHO[facility] HMO/PPO Address: [place] [address] Care Teams Motion Picture Photographer Relationship Specialty Start Date End Date Miscellaneous, Not In File PCP - General 06/18/21
--- OUTSIDE RECORDS SUMMARY | 2024-08-15 15:06 | XMS_ITS | Encounter Summary ---
Author Organization [facility] Address [address] [place] [address] Care Team Providers Care Ceramic Saw Tender Name Role Phone Ronny Piedra MD Primary Care Provider [phone] Zion Mora MD Primary Care Provider [phone] Encounter Details Date Type Department Care Team (Late st Contact Info) Description 09/30/2018 Abstract [facility] CONVERSION [address] [place] [address] , Generic MD Pernell Social History Tobacco Use Types Packs/Day Years Used Date Smoking Tobacco: Never Assessed Comments Unknown Sex and Gender Information Value Date Recorded Sex Assigned at Not on file Legal Sex Female 9:55 PM FENDER MECHANIC APPRENTICE Gender Identity Not on file Sexual Orientation Not on file documented as of this encounter Plan of Treatment Not on file documented as of this encounter Visit Diagnoses Not on filedocumented in this encounter Additional Health Concerns Infection Onset Date Last Indicated Resolved Time COVID-19 Rule Out 05/01/2021 05/01/2021 05/01/2021 11:15 AM FENDER MECHANIC APPRENTICE COVID-19 Confirmed 05/01/2021 05/01/2021 12:32 AM FENDER MECHANIC APPRENTICE documented as of this encounter Care Teams Ceramic Saw Tender Relationship Specialty Start Date End Date Ron[place] [address] PCP - General FAMILY PRACTICE 11/21/18 04/30/21 [place] [phone] PCP - General FAMILY PRACTICE 05/01/21 documented as of this encounter
--- OUTSIDE RECORDS SUMMARY | 2024-08-15 15:06 | XMS_ITS | Referral Summary ---
Author Organization [facility] Address [address] [place] [address] Care Team Providers Care Regulator Pin Inserter Name Role Phone Miscellaneous, Not In File [...] aruna Active Problems No known active problems Social History Tobacco Use Types Packs/Day Years Used Date Smoking Tobacco: Never Smokeless Tobacco: Never Comments Unknown Sex and Gender Information Value Date Recorded Sex Assigned at Not on file Legal Sex Female 8:26 PM DYE WORKER Gender Identity Not on file Sexual Orientation [...] 11/26/2021 2:38 PM CDT Plan of Treatment Not on file Insurance [facility] H[facility]PPO Address: [facility] [address] [id number] Care Teams Regulator Pin Inserter Relationship Specialty Start Date End Date Miscellaneous, Not In File PCP - General 06/18/21
[2024-08-15 15:07] LABS: Thyroid Stimulating Hormone Reflex 3.09 u/IU/mL (0.36-3.74)
[2024-08-15 15:26] LABS: RFT Charge Test YES; Rheumatoid Factor Screen Negative (Negative)
[2024-08-17 16:49] LABS: Anti Cyclic Citrullinated Pept <16 UNITS
== END 2024-08-15 13:24 | disposition home or self-care (01) ==
PROVIDERS: PCP Nurse Practitioner Family; Visit Provider Nurse Practitioner Family
DX: Z00.00 Encounter for general adult medical examination without abnormal findings (principal); M25.50 Pain in unspecified joint
CPT/HCPCS: 36415; 80053; 80061; 83036; 84443; 85025; 86200; 86430; 86431

== ENCOUNTER 2024-09-07 16:21 | Emergency (ER) | payer OTHER, SELFPAY | END 2024-09-07 16:45 | disposition home or self-care (01) | PROVIDERS: Emergency Provider Nurse Practitioner Family; PCP Family Medicine | DX: N39.0 Urinary tract infection, site not specified (principal) | CPT/HCPCS: 81003; 87086; 99213; G0463 ==

== ENCOUNTER 2024-11-20 15:03 | Outpatient (NON) | payer OTHER, SELFPAY ==
--- OUTSIDE RECORDS SUMMARY | 2024-11-20 15:06 | XMS_ITS | Clinical Summary ---
Author Organization [facility] Address [facility] [place] [address] Care Team Providers Care Mine Surveyor Name Role Phone Zion Mora MD Primary Care Provider [phone] Allergies Active Allergy Reactions Criticality Noted Date [...] on file Legal Sex Female 9:55 PM MDS MANAGER Gender Identity Not on file Sexual Orientation Not on file Last Filed Vital Signs Vital Sign Reading Time Taken Comments Blood Pressure 97/50 05/25/2019 8:14 AM MDS MANAGER Pulse 73 05/25/2019 8:14 AM MDS MANAGER Temperature 36.5 C (97.7 F) 05/25/2019 8:14 AM MDS MANAGER Respiratory Rate 18 05/25/2019 8:17 AM MDS MANAGER Oxygen Saturation 100% 05/25/2019 6:48 AM MDS MANAGER Inhaled Oxygen Concentration - - Weight 74.4 kg (164 lb) 05/15/2019 12:33 PM MDS MANAGER Height 175.3 cm (5' 9) 05/15/2019 12:33 PM MDS MANAGER Body Mass Index 24.22 05/15/2019 12:33 PM MDS MANAGER Plan of Treatment Health Maintenance Due Date Last Done Comments Cervical Cancer Screening Pap Smear (Age 30 to 64) Every 3 Years 1985 Annual Physical 01/24/1988 DTaP, Tdap and Td Vaccines (1 - Tdap) 01/24/2004 11/21/1990, 12/04/1986, 1985, Additional history exists Hepatitis B Vaccines (1 of 3 - 19+ 3-dose series) 01/24/2004 HPV Vaccines (1 - 3-dose SCDM series) 01/24/2012 Cervical Cancer Screening Pap with HPV Testing (Age 30 to 64) Every 5 Years 2015 Cervical Cancer Screening with HPV 2015 COVID-19 Vaccine ( season) 2023 06/19/2020, 05/21/2020 Hepatitis C Completed 02/05/2019 Meningococcal B Vaccine Aged Out No l [...] VE NON-REACT NAGA 02/06/2019 9:28 PM CDT [facility] Comment: ANTIBODIES TO HCV NOT DETECTED. DOES NOT EXCLUDE THE POSSIBILITY OF EXPOSURE TO HCV. 02/05/2019 10:3 9 AM CDT us Major Taveras MD LABORATORY Final R esult [facility] [address] [place] [address], [id number] from Last 3 Months or Most Recently Relevant to Health Maintenance Insurance [facility] Advance Directives * Full Code (Latest Code Status on File) Date Activated Date Inactivated Comments 05/24/2019 12:38 PM 05/25/2019 4:05 PM Care Teams Mine Surveyor Relationship Specialty Start Date End Date [place] [address] PCP - General FAMILY PRACTICE 05/01/21
--- OUTSIDE RECORDS SUMMARY | 2024-11-20 15:06 | XMS_ITS | Referral Summary ---
Author Organization [facility] Address [address] [place] [address] Care Team Providers Care Internet Researcher Name Role Phone Miscellaneous, Not In File Primary Care Provider Unavailable Allergies Active Allergy Reactions Criticality Noted Date Comments Fluocinolone Headache Low 05/15/2019 Other Other (See comments) Low 06/18/2021 Pt reports unknown anbx that causes extreme cranial pressure. Tramadol Anxiety,Palpitations Low 06/18/2021 Medications diphenoxylate-atro pine [...] on file Legal Sex Female 8:26 PM IS/IT PROJECT MANAGER Gender Identity Not on file Sexual [...] 2:38 PM CDT Height 172.7 cm (5' 8) 11/26/2021 2:38 PM CDT Body Mass Index 26.91 11/26/2021 2:38 PM CDT Plan of Treatment Not on file Insurance [facility] H[facility]/PPO Address: [facility] [address] [phone] Care Teams Internet Researcher Relationship Specialty Start Date End Date Miscellaneous, Not In File PCP - General 06/18/21
--- OUTSIDE RECORDS SUMMARY | 2024-11-20 15:06 | XMS_ITS | Clinical Summary ---
Author Organization [facility] Address [address] [place] [address] Care Team Providers Care Environmental Research Scientist Name Role Phone Miscellaneous, Not In File [...] on file Legal Sex Female 8:26 PM FIRER TUNNEL KILN Gender Identity Not on file Sexual Orientation [...] series) 1998 Regular Well Visit/Exam 18-64 2003 HPV Vaccines (1 - 3-dose SCDM series) 01/24/2012 DTaP/Tdap/Td Vaccine (7 - Td or Tdap) 09/02/2018 09/02/2008, 11/17/1999, 11/21/1990, Additional history exists Covid-19 Vaccine (3 - 2023- season) 2023 06/19/2020, 05/21/2020 Influenza Vaccine (#1) 2024 2018 Hepatitis B Screening Completed 08/24/2010 , 09/26/2009, 09/02/2008 Pneumococcal vaccine <65 Aged Out No longer eligible based on patient's age to complete this topic Insurance [facility] CHOICE PLUS Care Teams Environmental Research Scientist Relationship Specialty Start Date End Date Miscellaneous, Not In File PCP - General 06/18/21
--- OUTSIDE RECORDS SUMMARY | 2024-11-20 15:06 | XMS_ITS | Encounter Summary ---
Author Organization [facility] Address [address] [place] [address] Care Team Providers Care Wildlife Rehabilitator Name Role Phone Ronny Piedra MD Primary Care Provider [phone] Zion Mora MD Primary Care Provider [phone] Encounter Details Date Type Department Care Team (Late st Contact Info) Description 09/30/2018 Abstract [facility] CONVERSION [address] [place] [address] , Generic MD Pernell Social History Tobacco Use Types Packs/Day Years Used Date Smoking Tobacco: Never Assessed Comments Unknown Sex and Gender Information Value Date Recorded Sex Assigned at Not on file Legal Sex Female 9:55 PM MATHEMATICAL ENGINEERING TECHNICIAN Gender Identity Not on file Sexual Orientation Not on file documented as of this encounter Plan of Treatment Not on file documented as of this encounter Visit Diagnoses Not on filedocumented in this encounter Additional Health Concerns Infection Onset Date Last Indicated Resolved Time COVID-19 Rule Out 05/01/2021 05/01/2021 05/01/2021 11:15 AM MATHEMATICAL ENGINEERING TECHNICIAN COVID-19 Confirmed 05/01/2021 05/01/2021 12:32 AM MATHEMATICAL ENGINEERING TECHNICIAN documented as of this encounter Care Teams Wildlife Rehabilitator Relationship Specialty Start Date End Date Ron[place] [address] PCP - General FAMILY PRACTICE 11/21/18 04/30/21 [place] [address] [address] PCP - General FAMILY PRACTICE 05/01/21 documented as of this encounter
--- OUTSIDE RECORDS SUMMARY | 2024-11-20 15:06 | XMS_ITS | Encounter Summary ---
Author Organization [facility] Address [address] [place] [address] Care Team Providers Care Assistant Professor Nurse Education Name Role Phone Ronny Piedra MD Primary Care Provider [phone] Zion Mora MD Primary Care Provider [phone] Encounter Details Date Type Department Care Team (Late st Contact Info) Description 07/09/2017 Abstract SJS CONVERSION [address] [place] [address] , Generic MD Pernell Social History Tobacco Use Types Packs/Day Years Used Date Smoking Tobacco: Never Assessed Comments Unknown Sex and Gender Information Value Date Recorded Sex Assigned at Not on file Legal Sex Female 9:55 PM BOTTLE TESTER Gender Identity Not on file Sexual Orientation Not on file documented as of this encounter Plan of Treatment Not on file documented as of this encounter Visit Diagnoses Not on filedocumented in this encounter Additional Health Concerns Infection Onset Date Last Indicated Resolved Time COVID-19 Rule Out 05/01/2021 05/01/2021 05/01/2021 11:15 AM BOTTLE TESTER COVID-19 Confirmed 05/01/2021 05/01/2021 12:32 AM BOTTLE TESTER documented as of this encounter Care Teams Assistant Professor Nurse Education Relationship Specialty Start Date End Date [place] [place] [address] PCP - General FAMILY PRACTICE 11/21/18 04/30/21 [place] [address] [address] PCP - General FAMILY PRACTICE 05/01/21 documented as of this encounter
--- OUTSIDE RECORDS SUMMARY | 2024-11-20 15:06 | XMS_ITS | Data Portability ---
Author Organization [facility], [address] [place] [address] ([place]) Address [address] [place] [address] Care Team Providers Care Graphic User Interface Designer Name Role Phone DULCE AVILES Primary Care Provider THOR FRANCIS Byproducts Extractor DARRICK BHATIA [facility] rinologist Assessment Encounter Date Assessment Date Assessment LastModified by Organization Details LastModified Time 10/10/2023 10/10/2023 -- Pap screen: ACOG recommendations reviewed. Pap smear 06/01/2022 with negative cytology negative high-risk HPV cotesting. -- Breast care: Clinical breast exam performed. Discussion of self breast awareness. Plan to initiate mammogram screening at age 40. -- Vaccinations: Tdap 2019 per patient report. -- Colonoscopy: Plan for at age 45 unless otherwise indicated sooner. -- Contraception: Vasectomy. -- Sexually transmitted infection screening: Not indicated. -- Bone density testing: Not indicated. -- Partners and prevention sheet provided. -- The patient was encouraged to continue care with her primary care provider for the management of medical comorbidities and other health maintenance screening. -- GHTN/GDM: Denies. -- Left ovarian cyst/endometriosis : Concern for left ovarian cyst to be persistent cyst from March with increasing size more suggestive of endometrioma as opposed to hemorrhagic corpus luteum. Given the time frame between sonograms I cannot exclude the possibility that this is an interval new slightly larger hemorrhagic corpus luteum. Offered consideration for alternative managements for underlying endometriosis including NuvaRing, Ortho Evra patch, IUD, Depo-Lupron, and surgical intervention (laparoscopy with cautery and excision of endometriosis/left ovarian cystectomy versus hysterectomy.) Recommended against proceed with hysterectomy as neck step. After today's discussion decision was to proceed with trial of NuvaRing as this is a different progesterone compared to OCP she was most recently using. Will use this continuous cycle and return for shorter interval ultrasound. Through this course will determine for improvement in symptoms and possible resolution of current ovarian cyst. Further consider laparoscopy if symptoms/cyst persist. The patient's questions were answered in their entirety. She verbalized her understanding above discussion. I asked her to return in 1 year's time otherwise when necessary is indicated. [email or web address] Not available 10/13/2023 10:18:05 11/22/2023 11/22/2023 Endometriosis/dy sm enorrhea: -Prescription refill sent for Flexeril and Toradol. Patient instructed to use sparingly and to assure taking Toradol with food. -Continue with NuvaRing therapy moving forward. Can go to continuous cycle after 3 months of cyclic therapy. Left ovarian cyst: -Resolved as apparent by today's ultrasound. This is showing consistent with resolved hemorrhagic corpus luteum cyst which was likely the case in March and September coincidentally finding him on the same ovary. -Looking for reduced ovulation with use of NuvaRing which may help resolve frequency of ovarian cyst formation. The patient's questions were answered in their entirety and she verbalized her understanding of the above discussion. I personally spent a total of 20 minutes on the patient on this date of service including both xdjw-ft-kjin and mzvixyn-ju-ktgk time excluding any separately reportable services. [email or web address] Not available 11/24/2023 09:59:40 Plan of Treatment Reminders Order Date Submit Date Provider Last Modified By Organization Details Last Modified Time Details Appointments Annual [facility] Visit 20.EST 2024 11:00A M Dr. Thor Francis Not available Not available Not available Imaging 5.PRO 2025 10:15A M Radiology Not available Not available Not available Lab None recorded . Referral None recorded . Procedures None recorded . Surgeries None recorded . Imaging US, transvag inal 2023 024 KATHY Or Only - Or Radiology, [address] [place] [address], [id number], 11/24/2023 10:43:59 Medication Orders ketorola c 10 mg tablet 2023 [facility], [place], [address], 11/22/2023 10:58:51 cycloben zaprine 10 mg tablet 2023 024 [facility], [place], [address], 11/22/2023 10:58:52 Patient TargetsNo targets recorded. Patient InstructionsNo instructions recorded. Reason for Referral None Reported. Results Created Date Observation Date Name Description Value Unit Range Abnormal Flag Note LastModifiedBy Organization Detail LastModifiedTime 10/13/19 24 10/10/2023 US, trans vagin [address] [address] Teleph one [phone] Name: NAVARRO MOORE 1994 Exam Date: 2023 Age: 38 Physic belkis: BRITNEY GONZALEZ MD, THOR : 1984 Examin ation: US PELVIC NON-OB TRANSV AGINAL INDICA TION: Follow -up left ovaria n cyst. Transv aginal images of the pelvis are obtain ed today. The uterus is in the anteve rted positi on, measur ing 9.04 x 6.80 x 5.79 cm. Three measur able uterin e fibroi ds: 1. 0.98 x 0.75 x 0.99 cm. 2. 1.16 x 0.72 x 1.18 cm. 3. A 0.79 x 0.64 x 0.3 cm. The endome trial thickn ess is 17.64m m. The right ovary measur es 4.00 x 3.08 x 1.70 cm with arteri al wavefo rm on Dopple r imagin g. The left ovary measur es 6.39 x 4.99 x 4.96 cm with arteri al wavefo rm Dopple r imagin g. Comple x cyst with internet manager al echoes again seen measur ing 5.3 x 4.01 x 4.49 cm. The cul-de -sac is free pelvic fluid. IMPRES KOFI: Stable appear ing multi fibroi d uterus . Left ovary with redemo nstrat ion of comple x cyst slight ly larger in size with simila r sonogr aphic appear ance. Findin gs interv al 6 month interv al betwee n ultras ounds are sugges tive of endome trioma ; howeve r, cannot exclud e interv al resolu tion and develo pment of a new corpus luteum . Electr onical ly signed in [place] cribe by: THOR GONZALEZ on:09/24 11:29 AM cc: Page PAGE 1 of [facility] ES 1 INTERFACE Sc Only - Sc Radiology [facility] [place] [address], [id number], 10/13/2023 12:32:29 11/24/19 24 11/22/2023 US, trans vagin [address] [address] Teleph one Name: NAVARRO MOORE [id number] Exam Date: 2023 Age: 38 Physic belkis: BRITNEY GONZALEZ MD, THOR : 1984 Examin ation: US PELVIC NON-OB TRANSV AGINAL INDICA TION: Follow -up left ovaria n cyst. Transv aginal images of the pelvis are obtain ed today. The uterus is in the anteve rted positi on, measur ing 9.82 x 5.36 x 5.50 cm. Intram ural left anteri or leiomy omari measur es 0.71 x 0.48 x 0.57 cm as well as 0.93 x 0.79 x 0.7 cm. Associate Chief Nurse ior intram ural leiomy omari measur es 0.7 x 0.52 x 0.97 cm The endome trial thickn ess is 5.98mm . The right ovary measur es 2.67 x 1.97 x 2.03 cm with arteri al wavefo rm on Dopple r imagin g. Previo usly identi fied comple x cyst has resolv ed. Small follic le develo pment noted. . The left ovary measur es 3.96 x 2.19 x 2.69 cm with arteri al wavefo rm on Dopple r imagin g. Small follic le develo pment noted. The cul-de -sac is free pelvic fluid. IMPRES KOFI: Resolv ed left comple x cyst. Stable appear ing pelvic ultras ound with small subcen timete r leiomy omari identi fied within the myomet rium. Electr onical ly signed in [place] cribe by: THOR GONZALEZ on:11/23 9:41 AM cc: Page PAGE 1 of [facility] 1 INTERFACE Sc Only - Or Radiology [address] [place] [address], [id number], 11/24/2023 10:44:00 Result Notes None recorded. Problems Name Problem SNOMED Code Status Onset Date Resolution Date Notes Provider Name and Address Organization Details Recorded Time Cyst of ovary 90931898 Active [address] [facility] 4 17:44:17 Cyst of left ovary 7935506387607 9108 Active [address] [facility] 4 15:34:43 Endometrios is of ovary 128989982 Active 2023 Thor Francis MD [address] [place] [address], [phone] , [facility] 4 09:34:18 Problem Notes None recorded. Procedures Surgical History Date Name Laterality Status Provider Name and Address Organization Details Recorded Time 3 Date of Last Pap Smear completed Christina Jones [facility] 10/10/2023 08:25:18 0 Laparotomy completed Christinaartur Jones [facility] 10/10/2023 08:29:40 Imaging Results None recorded. Procedure Notes None recorded. Medical Equipment None Reported. Allergies Allergen ID Allergen Name Allergen Category Reaction Reaction Severity Criticality Documentation Date Start Date Code Code System Note Provider Name and Address Organization Details Recorded Time 263074 tramadol Not available other Not available Not available 05/23/20232018 81926 RxNorm React ion: Other ; Comme nt: Lynn cheney s: JUAN C MANCIAHARESH JAZZMINE Fe2018 2:01P M Hayti like panic attac k; ; Not Available [facility] 4 23:19:09 590926 Cipro medicatio n Not available Not available Not available 05/23/20232019 50456 3 RxNorm Comme nt: Lynn ation s: REAGAN Reed HARESH DOVER Se2019 2:25P M reall y bad crani al press ure; ; Not Available [facility] 4 23:19:09 Medications Name Sig Start Date Stop Date Status Note LastModified by Organization Details LastModified Time cyclobenzap rine 10 mg tablet Take 1 tablet 3 times a day by oral route as needed, for endometri osis back pain. 2023 active Not Available Not Available Not Avai lable norethindro ne 1 mg-ethinyl estradiol 20 mcg (21)-iron 75 mg (7) tablet TAKE 1 TABLET BY MOUTH ONCE DAILY 10/09 completed Not Available Not Available Not Available ketorolac 10 mg tablet Take 1 tablet every 6 hours by oral route as needed, for endometri osis pain. 2023 active Not Available Not Available Not Avai lable Toradol active Not Available Not Avail able Not Available Vitamin D3 2,000iu daily active Not Available Not Available No t Available Flexeril active Not Available Not Avai lable Not Available EluRyng 0.12 mg-0.015 mg/24 hr vaginal ring APPLY RING VAGINALLY AND CHANGE EVERY 4 WEEKS active Not Available Not Available No t Available Vitals Date Recorded Body height Body mass index (BMI) Body weight Systolic And Diastolic Provider Name and Address Organization Details Last Updated DateTime 10/10/2023 175.26 cm 28.5 kg/m2 52956.97 g 122/80 mm[Hg] Christina Jones [facility] 10/10/2023 14:49:27 Date Recorded Body height Body mass index (BMI) Body weight Systolic And Diastolic Provider Name and Address Organization Details Last Updated DateTime 11/22/2023 175.26 cm 27.8 kg/m2 86259.37 g 116/82 mm[Hg] Dede Hawley [facility] 11/22/2023 10:42:23 Social History Question Answer Notes LastModified by Organizat ion Details LastModified Time How Many Children Do You Have? -1 Information not available 10/10/2023 What Is Your Relationship Status? Freddy Velarde Information not available 10/10/2023 Are You Sexually Active? Yes Information not available 10/10/2023 Sex: Unknown Functional Status Question Answer Note LastModified by Organizat ion Details LastModified Time What is your level of alcohol consumption? Occasional 1 bottle wine once a month Information not available 10/10/2023 Are you currently employed? 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 Family History Relationship Description Onset Age of this Age Resolved Age Notes LastModified by Organization Details LastModified Time Mother Essential hypertension [email or web address] Not available 14:53:19 Mother Hypercholest erolemia jlauner Not available 2023 14:53:47 Medical History Condition Response Endometriosis Y Gynecological History Statement/Question Response Abnormal Pap N Date of Last Pap Smear 06/01/2022 Age at Menarche 13 Current Control Method Partner Vas ectomy Date of LMP 11/11/2023 Obstetrics History GPAL:G 1 P 1 0 0 1 Type Value Multiple Births 0 Full Term 1 Induced 0 Spontaneous 0 Premature 0 Living 1 Ectopics 0 Total 1 Immunizations Vaccine Type Date Status Note Provider Nam e and Address Organization Details Recorded Time Influenza, split virus, quadrivalent, preservative 3 [facility] 14:49:32 Hib, unspecified formulation 7 completed [facility]2023 14:49:33 MMR [address] [facility] 10/10/2023 14:49:33 MMR 1 completed Christina Launer null, [facility] 10/10/2023 14:49:33 COVID-19, mRNA, LNP-S, PF, 100 mcg/0.5mL dose or 50 mcg/0.25mL dose completed Christina Launer null, [facility] 10/10/2023 14:49:33 COVID-19, mRNA, LNP-S, PF, 100 mcg/0.5mL dose or 50 mcg/0.25mL dose completed Christina Launer null, [facility] 10/10/2023 14:49:33 Tdap 9 completed Christina Launer null, [facility] 10/10/2023 14:49:33 Tdap 9 completed Christina Launer null, [facility] 10/10/2023 14:49:33 DTP 6 completed Christina Launer null, [facility] 10/10/2023 14:49:33 DTP 6 completed Christina Launer null, [facility] 10/10/2023 14:49:33 DTP 6 completed Christina Launer null, [facility] 10/10/2023 14:49:33 DTP 1 completed Christina Launer null, [facility] 10/10/2023 14:49:33 DTP 7 completed Christina Launer null, [facility] 10/10/2023 14:49:33 OPV, trivalent 6 completed Christina Launer null, [facility] 10/10/2023 14:49:33 OPV, trivalent 6 completed Christina Launer null, [facility] 10/10/2023 14:49:33 OPV, trivalent 1 completed Christina Launer null, [facility] 10/10/2023 14:49:33 OPV, trivalent 7 completed Christina Launer null, [facility] 10/10/2023 14:49:33 Influenza, split virus, trivalent, preservative 2 completed [facility] 14:49:33 Td (adult), 2 Lf tetanus toxoid, preservative free, adsorbed 0 completed [facility]2023 14:49:33 Hep B, adult 1 completed [facility]2023 14:49:33 Hep B, adult 9 completed [facility]2023 14:49:33 Hep B, adult 0 completed [facility]2023 14:49:33 Hep A, adult 9 completed [facility]23 14:49:33 Hep A, adult 0 completed [facility]2023 14:49:33 Influenza, split virus, quadrivalent, PF 8 completed [facility]2023 14:49:33 Past Encounters Encounter ID Performer Location Encounter Start Date Encounter Closed Date Diagnosis/Indication Diagnosis SNOMED-CT Code Diagnosis ICD10 Code Diagnosis Note [id number] Thor Francis MD [address] ([place]) [address] [facility] [address] [place] [address] 10/10/2023 14:14:36 10/10/2023 15:39:54 Routine gynecologic examination 206574539 Z01.419 Additional diagnosis detail: Women's annual routine gynecologi stacy examinatio n Cyst of left ovary [address] 6101652 N83.536 [id number] Thor Francis MD [address] ([place]) [address] [facility] [address] [place] [address] 11/22/2023 10:05:57 11/22/2023 10:58:55 Cyst of left ovary 5174439225 0039062 N83.202 Endometrio sis of ovary 954840547 N80.109 Health Concerns Section Related Observation LastModified by Organization Detai ls LastModified Time None Recorded Concern Status LastModified by Organization Details LastModified Time None Recorded Advance Directives Directive None Recorded Payers Insurance Date Sequence Insurance Name Policy Number Policy Arreola Covered Member ID Arreola Member ID Guarantor Name 09/30/2023 1 [facility] [id number] Tom Paulochristah [id number] Nancy Paulodontrell 11/25/2023 1 [facility] [id number] Nancyshreya Velarde [id number] Nancy Velarde OBGyn Episode Ob Episode Information Episode Created Date Number of Fetuses Patient Bloodtype Patient rh Status Prepregnancy Weight lbs Domestic Partner Domestic Partner Phone Father Name City Clerk Status 10/10/19 24 1 CLOSED Fetus Data First Name Last Name Admitted to NICU Weight (g) Sex Living Outcome Pediatric Complications Fetus ID Race Codes Race Delivery Type 3912.23 1 F Full Term 8252 (Normal Spontaneo us Vaginal Delivery) Kayode Calculation Initial Kayode Date Initial Exam Date Initial Exam Provider Initial Ultrasound Date Last Menstrual Period Date Ultra Sound Weeks Gestation 0 Eighteen To Twenty Week Kayode Update Ultra Sound Date Fundal Height At Umbil Quickening Date Ultra Sound Latest Weeks Gestation Final Kayode Confirmed By Final Kayode Confirmed Date Final Kayode Date Ultra Sound Latest Days Gestation 0 0 Menstrual History Last Menstrual Date Menses Monthly On Bcp Conception Prior Menses Frequency Hcg Plus Date Menarche Onset Age Delivery Information Delivery Date Delivery Type Labor Anesthesia Weeks Gestation Incision Type Labor Labor Length Hrs Delivered By Post Complications Tubal Sterilization Discharge Date Comments 0 Regional-Ep idural 38.6 Wendy Discharge Information Feeding Method Contraceptive Method Maternal HG B and HCT Levels
[2024-11-20 15:38] LABS: Appearance Urine Clear (Clear); Glucose Urine UA Trace (Negative); Leukocyte Esterase Ur 2+ LEU/UL (Negative); Nitrate Urine Positive (Negative); Specific Grav Ur 1.020 (1.010-1.020)
[2024-11-20 16:35] LABS: Add Urine Microscopic? YES
== END 2024-11-20 15:04 | disposition home or self-care (01) ==
LOC: CHSLAB 15:04
PROVIDERS: PCP Nurse Practitioner Family; Visit Provider Nurse Practitioner Family
DX: R39.9 Unspecified symptoms and signs involving the genitourinary system (principal); R82.90 Unspecified abnormal findings in urine
CPT/HCPCS: 81001; 87077; 87086; 87186

== ENCOUNTER 2024-11-21 15:25 | Outpatient (NON) | payer OTHER, SELFPAY ==
--- OUTSIDE RECORDS SUMMARY | 2024-11-21 15:31 | XMS_ITS | Encounter Summary ---
Author Organization [facility] Address [address] [place] [address] Care Team Providers Care Qualified Craft Worker Electrician Name Role Phone Ronny Piedra MD Primary Care Provider [phone] Zion Mora MD Primary Care Provider [phone] Encounter Details Date Type Department Care Team (Late st Contact Info) Description 09/30/2018 Abstract SFL CONVERSION [address] [place] [address] , Generic MD Pernell Social History Tobacco Use Types Packs/Day Years Used Date Smoking Tobacco: Never Assessed Comments Unknown Sex and Gender Information Value Date Recorded Sex Assigned at Not on file Legal Sex Female 9:55 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 Gender Identity Not on file Sexual Orientation Not on file documented as of this encounter Plan of Treatment Not on file documented as of this encounter Visit Diagnoses Not on filedocumented in this encounter Additional Health Concerns Infection Onset Date Last Indicated Resolved Time COVID-19 Rule Out 05/01/2021 05/01/2021 05/01/2021 11:15 AM COMPUTER GRAPHIC ARTIST COVID-19 Confirmed 05/01/2021 05/01/2021 12:32 AM COMPUTER GRAPHIC ARTIST documented as of this encounter Care Teams Qualified Craft Worker Electrician Relationship Specialty Start Date End Date Ronny [place] [address] PCP - General FAMILY PRACTICE 11/21/18 04/30/21 [place] [address] [address] PCP - General FAMILY PRACTICE 05/01/21 documented as of this encounter
--- OUTSIDE RECORDS SUMMARY | 2024-11-21 15:31 | XMS_ITS | Clinical Summary ---
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
--- OUTSIDE RECORDS SUMMARY | 2024-11-21 15:31 | XMS_ITS | Encounter Summary ---
Author Organization [facility] Address [facility] [place] [address] Care Team Providers Care Biller Name Role Phone Ronny Piedra MD Primary Care Provider [phone] Zion Mora MD Primary Care Provider [phone] Encounter Details Date Type Department Care Team (Late st Contact Info) Description 07/09/2017 Abstract SJS CONVERSION [address] [place] [address] , Generic MD Pernell Social History Tobacco Use Types Packs/Day Years Used Date Smoking Tobacco: Never Assessed Comments Unknown Sex and Gender Information Value Date Recorded Sex Assigned at Not on file Legal Sex Female 9:55 PM OPTICAL ENGINEER Gender Identity Not on file Sexual Orientation Not on file documented as of this encounter Plan of Treatment Not on file documented as of this encounter Visit Diagnoses Not on filedocumented in this encounter Additional Health Concerns Infection Onset Date Last Indicated Resolved Time COVID-19 Rule Out 05/01/2021 05/01/2021 05/01/2021 11:15 AM OPTICAL ENGINEER COVID-19 Confirmed 05/01/2021 05/01/2021 12:32 AM OPTICAL ENGINEER documented as of this encounter Care Teams Biller Relationship Specialty Start Date End Date Ronny [place] [address] PCP - General FAMILY PRACTICE 11/21/18 04/30/21 [place] [address] [phone] PCP - General FAMILY PRACTICE 05/01/21 documented as of this encounter
--- OUTSIDE RECORDS SUMMARY | 2024-11-21 15:31 | XMS_ITS | Clinical Summary ---
Author Organization [facility] Address Formerly [facility] [place] [address] Care Team Providers Care Senior Electrical Design Engineer Name Role Phone Zion Mroa MD Primary Care Provider [phone] Allergies Active Allergy Reactions Criticality Noted Date [...] on file Legal Sex Female 9:55 PM [employer]USH [employer] Gender Identity Not on file Sexual Orientation Not on file Last Filed Vital Signs Vital Sign Reading Time Taken Comments Blood Pressure 97/50 05/25/2019 8:14 AM BR[employer]ISHER Pulse 73 05/25/2019 8:14 AM [employer]ISH[employer] Temperature 36.5 C (97.7 F) 05/25/2019 8:14 AM BR[employer] POLISHER Respiratory Rate 18 05/25/2019 8:17 AM BR[employer] POLISHER Oxygen Saturation 100% 05/25/2019 6:48 AM BR[employer]ISHER Inhaled Oxygen Concentration - - Weight 74.4 kg (164 lb) 05/15/2019 12:33 PM BRUSH POLISHER Height 175.3 cm (5' 9) 05/15/2019 12:33 PM BR[employer] POLISHER Body Mass Index 24.22 05/15/2019 12:33 PM BRUSH POLISHER Plan of Treatment Health Maintenance Due Date [...] VE NON-REACT NAGA 02/06/2019 9:28 PM CDT [facility] Comment: ANTIBODIES TO HCV NOT DETECTED. DOES NOT EXCLUDE THE POSSIBILITY OF EXPOSURE TO HCV. 02/05/2019 10:3 9 AM CDT us Major Taveras MD LABORATORY Final R esult [facility] [address] [place] [address], [id number] from Last 3 Months or Most Recently Relevant to Health Maintenance Insurance [employer] Advance Directives * Full Code (Latest Code Status on File) Date Activated Date Inactivated Comments 05/24/2019 12:38 PM 05/25/2019 4:05 PM Care Teams Senior Electrical Design Engineer Relationship Specialty Start Date End Date Zion [place] [address] PCP - General FAMILY PRACTICE 05/01/21
--- OUTSIDE RECORDS SUMMARY | 2024-11-21 15:31 | XMS_ITS | Referral Summary ---
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
== END 2024-11-21 15:26 | disposition home or self-care (01) ==
PROVIDERS: Visit Provider Nurse Practitioner Family
DX: L29.89 Other pruritus (principal)
CPT/HCPCS: 87798